=== PATIENT | female | born 1975 | race Caucasian/White ===

== ENCOUNTER 2016-08-28 06:30 | Inpatient (IN) | payer OTHER ==
[~2016-08-28] VITALS: Ht 170.2 cm; Wt 134.3 kg
--- NOTE | ~2016-08-28 | DS ---
PATIENT'S NAME: CAIN GARGA Jaci [facility] AGE: 41 Y [address] ROOM: [place] [id number] LOCATION: BS ADMIT DATE: 08/28/2016 Discharge Summary DISCHARGE DATE: 09/01/2016 FAMILY PHYSICIAN: Maria Del Carmen Malone MD ATTENDING PHYSICIAN: Sampson Dickerson DISCHARGE DIAGNOSES: 1. Status post section. 2. 39 weeks intrauterine . 3. Advanced maternal age. 4. Gestational diabetes, class A2. 5. Gestational hypertension. REASON FOR ADMISSION: Induction of labor secondary to gestational diabetes. PROCEDURES DURING ADMISSION: Primary low transverse section. HOSPITAL COURSE: The patient is a 41-year-old female, who presented to Labor and Delivery on August 28, for induction of labor at 39 weeks' secondary to gestational diabetes class A2 and gestational hypertension. The patient received 2 doses of Cytotec. She progressed from closed to 2 cm. She then had Pitocin for augmentation and did not change her cervix. She was offered a section versus trying gel. She decided to try 2 doses of gel which did not dilate her cervix any further, therefore, section was performed. On hospital day #2, she underwent a primary low transverse section without complications. course was uncomplicated. Her hemoglobin on postoperative day #1 was 9.7, down from 10.8 preoperatively. She was ambulating, urinating, tolerating p.o., and desired discharge home on postoperative #2. DISCHARGE INSTRUCTIONS: The patient was instructed no lifting greater than 15 pounds for 4 weeks. Nothing in the vagina for 6 weeks and to call if fever greater than 104. Pain not controlled with pain medications, or if any area for incision becomes red or looks infected. FOLLOWUP: The patient followup in [address] Sampson Dickerson. MD BRIDGER TALLEY/maykel PATIENT'S NAME: KYAWVERSAILLES [facility] AGE: 41 Y [address] ROOM: [place] [id number] LOCATION: [facility] ADMIT DATE: 08/28/2016 Discharge Summary DISCHARGE DATE: 09/01/2016 FAMILY PHYSICIAN: Maria Del Carmen Malone MD ATTENDING PHYSICIAN: Sampson Dickerson /[id number] d: 09/08/16 1333 t: 09/15/16 0819, DISCHARGE SUMMARY
--- NOTE | ~2016-08-28 | OR ---
PATIENT'S NAME: [facility] AGE: 41 Y [address] ROOM: [place] [address] LOCATION: GOBS ADMIT DATE: 08/28/2016 OR/Procedure Report DISCHARGE DATE: FAMILY PHYSICIAN: Maria Del Carmen Malone MD ATTENDING PHYSICIAN: SAMPSON DICKERSON SURGEON: Sampson Dickerson MD [employer] SUPERVISOR: Kajal Mackay MD. DATE OF PROCEDURE: 08/29/2016 PREOPERATIVE DIAGNOSES: 1. Intrauterine at 39 weeks 6 days. 2. Gestational diabetes, class A2. 3. Gestational hypertension. 4. Obesity. 5. Chronic anemia. 6. Advanced maternal age. 7. Failed induction of labor. POSTOPERATIVE DIAGNOSES: 1. Intrauterine at 39 weeks 6 days. 2. Gestational diabetes, class A2. 3. Gestational hypertension. 4. Obesity. 5. Chronic anemia. 6. Advanced maternal age. 7. Failed induction of labor. PROCEDURE PERFORMED: Primary low-transverse section. ANESTHESIA: Spinal. FINDINGS: Viable male with score and weight pending. Placenta intact with 3-vessel cord. Normal uterus. Normal fallopian tube and ovaries bilaterally. ESTIMATED BLOOD LOSS: 1000. COMPLICATIONS: None. INDICATIONS: The patient is a 41-year-old, G1, with intrauterine at 39 weeks 6 days, who presented to Labor and Delivery yesterday for induction of labor, secondary to gestational diabetes as well as gestational hypertension. The patient was found to be closed, thick, and high on presentation. 25 mcg of Cytotec was placed. Four hours later, and 25 mcg was placed. Four hours later, the patient was not able to be monitored and was PATIENT'S NAME: [facility] AGE: 41 Y [address] ROOM: [place] [address] LOCATION: [facility] ADMIT DATE: 08/28/2016 OR/Procedure Report DISCHARGE DATE: FAMILY PHYSICIAN: Maria Del Carmen Malone MD ATTENDING PHYSICIAN: SAMPSON DICKERSON thought to be 2 cm. Pitocin was started. I examined her after that, and she was found to be 140 and -3. A Bauman bulb was attempted to be placed, but could not be placed. The patient continued on Pitocin all the way up to 25 milliunits without progressing 24 hours after induction was started. We discussed section versus going home and trying again tomorrow versus trying Pitocin. The patient decided to try Pitocin. She had this placed twice and still made no cervical change, therefore, section was recommended. She was counseled about the risks of the procedure including bleeding, infection, damage to surrounding organs and tissue including bowel, bladder, blood vessels, ureters, and nerves. She was also counseled about the risks of needing additional procedures or hospitalizations due to any complications. Throughout her labor course, the patient only had two blood sugars over 100. The rest were all less than 100. Therefore, she did not require insulin during her induction. DESCRIPTION OF PROCEDURE: The patient was taken to the operating room, where spinal anesthesia was placed. She was placed in dorsal supine position with a leftward tilt. A Bauman catheter was placed. She was prepped and draped in the usual sterile fashion. Anesthesia was found to be adequate. A time-out was performed. Scalpel was then used to make a Pfannenstiel incision that was carried down to the underlying fascia. The fascia was scored. The fascial incision was then extended bilaterally with Gonzalez scissors. Sharp and blunt dissection was used to dissect the rectus muscles off the fascia superiorly and inferiorly. The rectus muscles were released from the midline. The peritoneum was identified and entered bluntly. This was extended bluntly. The bladder blade was placed for visualization. A scalpel was then used to make a transverse incision on the lower uterine segment. This was extended in a cephalad-caudal direction. Artificial rupture of membranes with clear fluid was performed. head was then grasped and delivered through the incision, followed by the remainder of the fetus. The cord was clamped and cut, and the was handed to the awaiting delivery team. Cord blood was obtained. The placenta was expressed intact. The uterus was exteriorized and cleared off remaining clots and debris. It was closed in a running locked fashion with 0 chromic suture. Hemostasis was noted. It was replaced into the abdominal cavity. Hemostasis was again noted. The rectus muscles and the fascia were inspected, and no bleeding was noted. The fascia was then closed in a running fashion using 0 Vicryl suture. The subcutaneous tissue was then irrigated and any areas of bleeding were cauterized. It was then closed in a running fashion using 2-0 Polysorb. The skin was closed with 4-0 Monocryl in a subcuticular fashion, followed by Steri-Strips and a pressure dressing. Instrument, sponge, and needle counts were correct prior to abdominal closure and at the conclusion of the case. DISPOSITION: Mom is stable. Baby to the NICU. PATIENT'S NAME: DONALD GARG [facility] AGE: 41 Y [address] ROOM: [place] [address] LOCATION: [facility] ADMIT DATE: 08/28/2016 OR/Procedure Report DISCHARGE DATE: FAMILY PHYSICIAN: Maria Del Carmen Malone MD ATTENDING PHYSICIAN: SAMPSON DICKERSON MD BRIDGER TALLEY/maykel /[id number] d: 08/30/16 0050 t: 09/01/16 0926, OPERATIVE SUMMARY
[~2016-08-28 06:30] MED LIST: FLINTSTONES1 EAC1 PO; NOVOLIN-N100 UNIT/M SUB-Q; PRENATAL 1+1)(P1 TAB PO; PROBIOTIC1 EAC1 PO; SLOW FE142 MG PO
[2016-08-28] MEDS ORDERED: CLARITIN10 MG PO (07:14)
[2016-08-28 07:21] LABS: BASOPHIL % 0.2 %; EOSINOPHIL # 0.1 K/uL (0.0-0.5); EOSINOPHIL % 1.2 %; HEMATOCRIT 32.8 % (33.0-46.0); HEMOGLOBIN 10.8 g/dL (11.0-15.0); IMMATURE GRANULOCYTE # 0.1 K/uL (0.0-0.3); IMMATURE GRANULOCYTE % 0.5 %; LYMPHOCYTE # 1.8 K/uL (0.8-4.0); MCH 26.5 pg (27.0-34.0); MCHC 32.9 gm/dL (32.0-36.5); MCV 80.4 fl (83.0-98.0); MONOCYTE # 0.7 K/uL (0.0-1.0); MONOCYTE % 6.7 %; MPV 11.5 fl (9.4-12.4); NEUTROPHIL # (ANC) 7.2 K/uL (1.8-7.8); NEUTROPHIL % 73.4 %; NRBC % 0 /100WBC (0-0.00); PLATELET COUNT 226 K/uL (150-450); RBC 4.08 M/uL (3.50-5.50); RDW-CV 15.4 % (11.9-14.6); WBC 9.7 K/uL (4.0-11.0)
--- NOTE | 2016-08-29 21:57 | NUR ---
PT STATES SHE FEELS A LITTLE SHAKY AND REQUESTS BLOOD SUGAR BE TAKEN. RESULT OF ACCUCHECK WAS 122. PT GIVEN SOME SALTINES. WILL CONTINUE TO MONITOR PT STATUS.
--- NOTE | 2016-08-29 22:19 | NUR ---
FUNDAL CHECK DONE, SM BLEEDING NOTED WITH NO CLOTS, FUNDUS SLIGHTLY BOGGY BUT FIRMS WITH MASSAGE
[2016-08-30 05:04] LABS: BASOPHIL % 0.2 %; EOSINOPHIL % 0.4 %; HEMATOCRIT 31.4 % (33.0-46.0); HEMOGLOBIN 9.7 g/dL (11.0-15.0); IMMATURE GRANULOCYTE # 0.1 K/uL (0.0-0.3); IMMATURE GRANULOCYTE % 0.4 %; LYMPHOCYTE # 1.5 K/uL (0.8-4.0); LYMPHOCYTE % 12.8 %; MCHC 30.9 gm/dL (32.0-36.5); MCV 80.9 fl (83.0-98.0); MONOCYTE # 1.1 K/uL (0.0-1.0); MONOCYTE % 9.3 %; MPV 11.3 fl (9.4-12.4); NEUTROPHIL # (ANC) 8.7 K/uL (1.8-7.8); NEUTROPHIL % 76.9 %; NRBC % 0 /100WBC (0-0.00); PLATELET COUNT 200 K/uL (150-450); RBC 3.88 M/uL (3.50-5.50); RDW-CV 15.4 % (11.9-14.6); WBC 11.3 K/uL (4.0-11.0)
--- NOTE | 2016-08-30 06:51 | NUR ---
Last VS: T:98.0 P:98 R: 16 BP: 125/72 Pain ratin Last pain med: Morphine IV Medicated at: 0625 Effective: R Lung sounds: , L Lung sounds: Fundus: midline, firm, at umbilicus Lochia: rubra, small Breasts: , Nipples: Intact Incision: Covered by dressing Incision appearance: Incision closure: Bowel sounds: present Passing flatus: Voiding well: No void since dhaliwal removal at 0100. Significant event: Took over cares from Janis SANDERS at 0115. VSS. Patient got up around 0400, became dizzy and lightheaded, was wheeled back to bed in wheelchair. Vital signs stable at that time and blood sugar was 128. Has not been up since. at the bedside. Patient is pleasant and cooperative with cares.
--- NOTE | 2016-08-30 18:02 | NUR ---
Last VS: T:98.2 P:90 R: 14 BP: 135/62 Pain rating: . Last pain med: percocets (2) at 1520 Medicated at: Effective: R Lung sounds: clear L Lung sounds: clear Fundus: firm and 1 finger down Lochia: , Breasts: , Nipples: Incision: , Incision appearance: I took microfoam dressing off during the shower. incision clean and dry with sutures and strips. patient still has saline lock. took percocet at 0752, 1138 and 1520, Patient can not take motrin due to a past surgery. Incision closure: Bowel sounds: Passing flatus: Voiding well: Significant event: .
--- NOTE | 2016-08-31 15:52 | NUR ---
Last VS: T:98.4 P:112 R: 14 BP: 131/56 Pain rating: . Last pain med: Medicated at: Effective: percocet (2) 1003 R Lung sounds: clear L Lung sounds: clear Fundus: firm and 1 finger down Lochia: , Breasts: , Nipples: Incision: , Incision appearance: incision clean and dry with sutures and strips intact. Incision closure: Bowel sounds: present Passing flatus: yes Voiding well: yes Significant event: . patient has been up and about in room and hallway. home tomorrow. accuchecks today have been 129, 108 and 109.
--- NOTE | 2016-09-01 06:39 | NUR ---
VSS. Fasting BS this morning 84. Blood sugars 2hours after meals. Percocet at 0230. Home today. Pt wants to see Lacatation before home. Not able to have motrin. Fundus Firm and midline.
[2016-09-01] MEDS ORDERED: SURFAK240 MG PO (12:05)
[2016-09-01] MEDS ORDERED: PERCOCET 5-3251 EACH PO (12:07)
== END 2016-09-01 12:30 | disposition disaster alternative care site (69) | DRG 765 ==
LOC: GOBS 06:30 → GOBM 06:30 → GOBS 06:31 → GOBM 06:31 → GOBS 09-01 12:30
PROVIDERS: ADMIT Obstetrics & Gynecology
DX: O24.424 Gestational diabetes mellitus in childbirth, insulin controlled (principal); D62 Acute posthemorrhagic anemia; E66.9 Obesity, unspecified; Z3A.39 39 weeks gestation of pregnancy; Z37.0 Single live birth; O13.4 Gestational [pregnancy-induced] hypertension without significant proteinuria, complicating childbirth; O61.0 Failed medical induction of labor; O76 Abnormality in fetal heart rate and rhythm complicating labor and delivery; O99.214 Obesity complicating childbirth; Z98.84 Bariatric surgery status; O99.03 Anemia complicating the puerperium; D51.9 Vitamin B12 deficiency anemia, unspecified
CPT/HCPCS: J0690; J2001; J2210; J2270; J2590; J7120